=== PATIENT | male | born 1960 | race Caucasian/White ===

== ENCOUNTER 2019-06-07 12:51 | Emergency (ER) | payer OTHER, SELFPAY ==
[2019-06-07 12:53] VITALS: BP 114/70; PULSE 59; RESP 17; TEMP 37; O2SAT 99; BMI 32.2
--- NOTE | 2019-06-07 13:42 | CT_ITS ---
STUDY: CT BRAIN WITHOUT CONTRAST REASON FOR EXAM: Male, 59 years old. Headache after a fall RADIATION DOSAGE (If Supplied By Facility): CTDIvol = ( 60.81 ) mGy, DLP = ( 1089.89 ) mGycm TECHNIQUE: Transaxial CT imaging of the brain was performed without administration of intravenous contrast material. Individualized dose optimization techniques were used for this CT. COMPARISON: No relevant priors. FINDINGS: Normal soft tissue structures. Normal calvarium. Normal size ventricles and extra-axial spaces for the patient's age. Normal white matter tracts of the cerebral hemispheres. Normal basal ganglia and thalami. Normal brainstem. Normal cerebellum. There is no intracranial hemorrhage. There are no findings of an acute ischemic infarction. Normal visualized paranasal sinuses. CT/Brain/Head without Contrast IMPRESSION: Normal unenhanced CT scan of the brain. Electronically Signed: Yan Esquivel MD at 14:15 EDT , Service support ,
--- NOTE | 2019-06-07 13:42 | CT_ITS ---
STUDY: CT CERVICAL SPINE WITHOUT CONTRAST REASON FOR EXAM: Male, 59 years old. Headache after a fall RADIATION DOSAGE (If Supplied By Facility): CTDIvol = ( 28.89 ) mGy, DLP = ( 711.10 ) mGycm TECHNIQUE: High resolution transaxial imaging was performed without contrast material. Sagittal and coronal images were reconstructed. Individualized dose optimization techniques were used for this CT. COMPARISON: None FINDINGS: Normal craniovertebral junction. Normal anterior atlantoaxial articulation. Normal odontoid process. There is straightening of the normal cervical lordosis. Normal vertebral bodies and posterior osseous elements. Mild intervertebral disc space narrowing noted throughout the C-spine. No demonstrated fracture or suspicious osseous lesion. No central canal stenosis or significant foraminal narrowing. No upper rib fracture or pneumothorax CT/Spine Cervical without Contras IMPRESSION: Mild degenerative changes, as described above. Electronically Signed: Yan Esquivel MD at 14:28 EDT , Service support ,
--- NOTE | 2019-06-07 13:43 | ED.DCSUM_ITS ---
History of Present Illness Chief Complaint: Trauma Informant: Patient, Significant Other Onset: Today - about 1-2 hrs [employer] Mechanism/Context: Fall - off of a horse when it bucked Quality of Pain: Aching Current Severity: Mild Associated Symptoms: Parasthesias - in toes bilat, cowboy boots still on, Loss of consciousness, Amnesia Length of loss of consciousness: unk Narrative: Patient was bucked off of a horse, he lost consciousness, he then awoke and passed out again. At this time, the patient states that I am just now coming to, and I do not remember anything. states he is repeating questions. At this time he states he has a mild headache and his neck is a little sore on the right lateral aspect. He states he is having a little pain in his mid back around his left shoulder blade, and pain goes into his left shoulder. He denies any trouble breathing, chest discomfort, abdominal pain, nausea, visual disturbance, or other upper/lower extremity symptoms. - Past Medical History (1) Hypertension Status: Chronic (2) Depression Status: Chronic Past Medical History - Allergies and Home Meds Allergies/Adverse Reactions: Allergies No Known Allergies Allergy (Verified 06/07/19 12:52) Primary Care Physician: NOT,DEFINED [NON-STAFF] - Lives: Spouse/ Significant Other Review of Systems ROS: Unable to Obtain - limited except as indicated Eyes: Denies: Visual changes - bilaterally, Blurred Vision - bilaterally, Diplopia ENT: Denies: Bilateral ear pain, Rhinorrhea, Sore throat Cardiovascular: Denies: Chest pain, Palpitations Respiratory: Denies: Dyspnea, Cough, Dyspnea on exertion Gastrointestinal: Denies: Abdominal pain, Nausea, Vomiting Musculoskeletal: Reports: Neck pain, Back pain. Denies: Extremity Pain Skin: Denies: Rash, Abrasions, Wounds Neurological: Reports: Headache, Parasthesia - all toes. Denies: Weakness Physical Exam Vital Signs/Narrative: Vital Signs Temp Pulse Resp BP Pulse Ox 06/07/19 12:53 98.6 F 59 L 17 114/70 99 Inital Vital Signs reviewed: Yes General: Well nourished, Well developed Head: Normocephalic, Atraumatic. Negative for: Tenderness Eyes: Perrl, EOMI ENT: TM's clear, No hemotympanum or drainage, No trauma Neck: Nontender, Full ROM, Paraspinal Tenderness - Mild, lateral right neck. C- collar placed.. Negative for: Spinal Tenderness Cardiovascular: Regular rate, Regular rhythm, No murmurs. Negative for: Tachycardia Respiratory: No distress, CTA bilaterally, Chest nontender Abdomen: Soft, Nontender, Nondistended, Normal bowel sounds Back: Nontender. Negative for: Spinal Tenderness, Paraspinal Tenderness Skin: Normal color, No rash, No Trauma Neurological: Alert, Cranial nerves II-XII grossly intact, Normal Strength, Normal Sensation - After removing the patient's boots, his tingling is resolved and his sensation is normal., Disoriented - Knows what city and state he lives in, oriented to person, not to time/year/president. Negative for: Oriented x3 Psychological: Normal affect, Normal Mood - Glascow Coma Scale Eye Opening: Spontaneous Motor: Obeys Commands Verbal: Confused Coma Scale Total: 14 Diagnostic/Tx/Re-eval Clinical Impression(s) from Imaging Studies Brain CT 06/07/19 13:42 IMPRESSION: Normal unenhanced CT scan of the brain. Electronically Signed: Yan Esquivel MD at 14:15 EDT , Service support , Cervical Spine CT 06/07/19 13:42 IMPRESSION: Mild degenerative changes, as described above. Electronically Signed: Yan Esquivel MD at 14:28 EDT , Service support , Chest X-Ray 06/07/19 13:44 IMPRESSION: Normal x-ray examination of the chest. Electronically Signed: Yan Esquivel MD at 14:18 EDT , Service support , Laboratory Tests 06/07/19 06/07/19 06/07/19 Range/Units 17:15 16:32 16:32 WBC 12.7 H (4.4-11.0) K/mm3 RBC 4.57 L (4.6-6.2) M/mm3 Hgb 13.9 (13.0-16.5) g/dL Hct 40.8 (40-54) % MCV 89.3 (80-94) fL MCH 30.4 (27.0-32.0) pg MCHC 34.1 (32-36) g/dL RDW Std Deviation 41.9 (35.1-43.9) fl RDW Coeff of Raheem 12.8 (11.6-14.6) % Plt Count 274 (150-450) K/mm3 MPV 9.4 (6.2-12.0) fl Immature Gran % (Auto) 0.400 (0.0-0.9) % Neut % (Auto) 79.5 H (47-70) % Lymph % (Auto) 11.9 L (19-41) % [place] % (Auto) 7.7 (0-10) % Eos % (Auto) 0.2 (0-5) % Baso % (Auto) 0.3 (0-1) % Absolute Neuts (auto) 10.1 H (2.0-7.7) X10^3/uL Absolute Lymphs (auto) 1.51 (0.83-4.51) X10^3/uL Absolute Nucleated RBC 0.00 (0-5) 10^3/uL Nucleated RBC % 0 (0-5) % Differential Comment SCANNED Sodium 136 (136-145) mmol/L Potassium 4.0 (3.5-5.1) mmol/L Chloride 107 (98-107) mmol/L Carbon Dioxide 23.0 (21.0-32.0) mmol/L Anion Gap 6 (5-15) BUN 21 H (7-18) mg/dL Creatinine 1.13 (0.70-1.30) mg/dL Estim Creat Clear Calc 83.86 ml/min Est GFR (MDRD) Af Amer 86 (>60) mL/min Est GFR (MDRD) Non-Af 71 (>60) mL/min BUN/Creatinine Ratio 18.6 (10-20) RATIO Glucose 91 (74-106) mg/dL Calcium 9.1 (8.5-10.1) mg/dL Urine Color Yellow (Yellow) Urine Clarity Clear (Clear) Urine pH 6.0 (5.0 - 8.0) Ur Specific [place] 1.015 (1.002-1.030) Urine Protein 30 H (Negative) mg/dl Urine Glucose (UA) Normal (Normal) mg/dl Urine Ketones 50 H (Negative) mg/dl Urine Occult Blood Negative (Negative) /ul Urine Nitrite Negative (Negative) Urine Bilirubin Negative (Negative) mg/dL Urine Urobilinogen Normal (Normal) mg/dl Ur Leukocyte Esterase Negative (Negative) /ul Urine RBC 0-5 SEEN (0-5) /hpf Urine WBC 0-5 SEEN (0-5) /hpf Ur Squamous Epith Cells 0 SEEN (0-5) /hpf Urine Bacteria 0 SEEN (None Seen) /hpf Urine Mucus 1+ (<or=2+) /hpf - Medical Decision Making Scans are negative collar was removed and he is moving his head/neck well with minimal discomfort. He states his pain is mild. However he continues to repeat questions, and he cannot remember anything from more than 2 minutes ago. He was observed for about 4-5 hours and nothing is changed. is very concerned about taking at home. He does not remember any of the conversations they have had or that healthcare practitioners have had with him today in the emergency department. I think it is reasonable to observe him in the emergency department, he and family are comfortable with that plan. Patient was observed in total for about 5 hours since he arrived. His mentation cleared significantly, he was back to normal. He was able to tell me the year and the events of today although he did not remember any of the initial details. He stopped repeating questions, was no longer confused, had a GCS of 15. He is able to ambulate without difficulty. Family is comfortable taking him home at this time, we did discuss transfer to a trauma center, I discussed with the hospitalist here initially but they had stated he was inappropriate for admission due to the lack of neurology coverage for the next 2-1/2 days and lack of trauma services here. Given his significant improvement to baseline mental status, I do not think he needs admission any longer. He is home for the weekend, he is given a work note for Monday just in case, we discussed reasons to return to the ER and the very rare event of a delayed hemorrhage, he was given ibuprofen here which helped and advised to use Tylenol/ibuprofen/heat or ice at home, and he has a doctor's appointment on Monday of this coming week for a checkup, they will discuss further then. He also has a neurologist he can follow-up with if he is still having symptoms the following Monday. All questions answered at the bedside. ED Disposition - Plan for ED Patient: Disposition: Home or Assisted Living Diagnosis: Concussion with loss of consciousness <= 30 min, Cervical strain, acute, Fall from horse Instructions: CONCUSSION, No Wake Up, Neck Sprain/Strain Referrals: Doctor,Your [STAFF PHYSICIAN] - As Needed (on Monday this coming week)
--- NOTE | 2019-06-07 13:44 | RAD_ITS ---
STUDY: X-RAY CHEST REASON FOR EXAM: Male, 59 years old. Chest pain after a trauma TECHNIQUE: Single AP portable view of the chest. COMPARISON: None. FINDINGS: EKG leads overlie the chest The lungs are clear and expanded. There is no demonstrated pleural abnormality. Normal size heart. Normal mediastinum and shelly. Normal visualized pulmonary arteries. Normal visualized aortic arch and descending thoracic aorta. Normal visualized thoracic spine. Normal visualized ribs, clavicles, and shoulders. There is no demonstrated abnormality of the visualized soft tissue structures of the upper abdomen. RAD/Chest 1 View IMPRESSION: Normal x-ray examination of the chest. Electronically Signed: Yan Esquivel MD at 14:18 EDT , Service support ,
[2019-06-07 15:50] VITALS: BP 126/67; PULSE 71; RESP 12; O2SAT 97
[2019-06-07 16:51] LABS: Absolute Lymphocyte Count 1.51 X10^3/uL (0.83-4.51); Absolute Neutrophil Count 10.1 X10^3/uL (2.0-7.7); Basophil# 0.04 X10^3/uL; Basophil% 0.3 % (0-1); Eosinophil# 0.02 X10^3/uL; Eosinophils% 0.2 % (0-5); Hematocrit 40.8 % (40-54); Hemoglobin 13.9 g/dL (13.0-16.5); Lymphocyte # 1.51 X10^3/ul (4.0); Lymphocyte % 11.9 % (19-41); Mean Corp Hgb Conc 34.1 g/dL (32-36); Mean Corpuscular Hgb 30.4 pg (27.0-32.0); Mean Corpuscular Volume 89.3 fL (80-94); Mean Platelet Vol. 9.4 fl (6.2-12.0); Monocyte# 0.97 X10^3/uL; Monocyte% 7.7 % (0-10); NRBC Flagged by Analyzer 0 % (0-5); Neutrophil # 10.08 X10^3/uL (2.7-7.7); Neutrophil % 79.5 % (47-70); POSITIVE COUNT YES; Platelet Count 274 K/mm3 (150-450); RBC Distribution Width CV 12.8 % (11.6-14.6); RBC Distribution Width SD 41.9 fl (35.1-43.9); Red Blood Count 4.57 M/mm3 (4.6-6.2); White Blood Count 12.7 K/mm3 (4.4-11.0)
[2019-06-07 16:52] LABS: Differential Indicated SCAN CRITERIA MET
[2019-06-07 16:55] LABS: Anion Gap 6 (5-15); BUN 21 mg/dL (7-18); BUN/Creat Ratio 18.6 RATIO (10-20); Calcium,Total 9.1 mg/dL (8.5-10.1); Chloride 107 mmol/L (98-107); Creatinine, Serum 1.13 mg/dL (0.70-1.30); EST Glomerular Filtration Rate 71 mL/min (>60); Est Glom Filt Rate - Afr Amer 86 mL/min (>60); Estimated Creatinine Clearance 83.86 ml/min; Glucose 91 mg/dL (74-106); Sodium Level 136 mmol/L (136-145)
[2019-06-07 17:10] LABS: Differential Comment SCANNED
[2019-06-07 17:16] VITALS: PULSE 78; RESP 16
[2019-06-07] MEDS: Ibuprofen 600 MG Tablet PO (17:20)
[2019-06-07 17:25] LABS: Bacteria 0 SEEN /hpf (None Seen); Squamous Epithelial Cells - UA 0 SEEN /hpf (0-5)
[2019-06-07 17:30] LABS: Color, Urine Yellow (Yellow); Glucose, Dipstick Normal (Normal); Ketone-Dipstick 50 mg/dl (Negative); Leukocyte Esterase-Dipstick Negative /ul (Negative); Nitrite-Dipstick Negative (Negative); Occult Blood-Urine Negative /ul (Negative); Protein-Dipstick 30 mg/dl (Negative); Specific Gravity, Urine 1.015 (1.002-1.030); Urine Bilirubin Dipstick Negative (Negative); Urine Clarity Clear (Clear); Urine Urobilinogen Normal (Normal)
[2019-06-07 17:37] LABS: Mucous, Urine 1+ /hpf (<or=2+); Red Blood Cells-Urine 0-5 SEEN /hpf (0-5); White Blood Cells 0-5 SEEN /hpf (0-5)
[2019-06-07 18:12] VITALS: BP 131/70; PULSE 78; PULSE 79; RESP 17; O2SAT 97
== END 2019-06-07 18:36 | disposition home or self-care (01) ==
PROVIDERS: Emergency Provider Emergency Medicine; Family Provider Family Medicine; PCP Family Medicine
DX: S06.0X1A Concussion with loss of consciousness of 30 minutes or less, initial encounter (principal); S16.1XXA Strain of muscle, fascia and tendon at neck level, initial encounter; V80.010A Animal-rider injured by fall from or being thrown from horse in noncollision accident, initial encounter; Y93.52 Activity, horseback riding; Y92.9 Unspecified place or not applicable; I10 Essential (primary) hypertension; F32.9 Major depressive disorder, single episode, unspecified; Z79.899 Other long term (current) drug therapy
CPT/HCPCS: 70450; 71045; 72125; 80048; 81001; 85025; 99284; A4216

== ENCOUNTER 2025-08-08 09:20 | Emergency (ER) | payer OTHER, SELFPAY ==
[2025-08-08] VITALS (7 sets, daily range): BP systolic 105–146; BP diastolic 66–78; PULSE 53–60; RESP 12–16; TEMP 36.6–36.9; O2SAT 97–100; BMI 29.6
--- NOTE | 2025-08-08 11:08 | EX.ED.DYSGE1 ---
HPI History of Present Illness Chief Complaint: Syncope Informant: patient and spouse/S.O. Narrative Narrative: Patient is a 65-year-old male with history of depression, hypertension and syncopal episodes presenting after syncopal episode as well as some right groin pain. Patient states yesterday he was lifting a scooter and then afterwards noticed some pain in his left groin area. States it feels more like a pulling sensation. Has a history of partial colectomy (laparoscopic) and was told during the surgery he had a hernia. He was concerned he maybe has a hernia in his right groin. He went to urgent care yesterday where they said it was either hernia or strain. This morning while he was at breakfast he started to feel nauseous and was thinking about his groin discomfort. He then started to feel hot and then had a syncopal episode. His head laid down on the table and he did not injure himself. states he was out for approximately 20 seconds and then came back around. No report of any seizure activity. He is otherwise been in his normal state of health. They are going out of town on a trail riding trip this weekend and want a make sure that he is okay. He currently denies any nausea or vomiting. Denies any recent fever or chills. States besides his groin pain is otherwise been in his normal state of health. Denies any testicular pain, difficulty urinating or dysuria. Denies any associated vomiting or change in his bowel movements. No other complaints or concerns at this time [facility] Home Medications ?Medication ?Instructions ?Recorded ?Last Taken ?Type metoprolol succinate 50 mg 50 mg PO DAILY 06/07/19 06/07/19 History tablet,extended release 24 hr sertraline 50 mg tablet 50 mg PO DAILY 06/07/19 06/07/19 History Allergy/AdvReac Type Severity Reaction Status Date / Time No Known Allergies Allergy Verified 06/07/19 12:52 Social History Smoking Status: Never smoker ROS ROS ED Constitutional Constitutional ED: Reports sweats and other Details: Syncopal episode ; Denies chills or fever(s) Eyes Eyes: Denies change in vision Cardiovascular Cardiovascular: Denies chest pain Respiratory/Chest Respiratory/Chest: Denies cough or dyspnea Gastrointestinal Gastrointestinal: Reports nausea; Denies abdominal pain or vomiting Musculoskeletal Musculoskeletal: Reports other Details: right groin strain ; Denies arthralgias or myalgias Integumentary Denies Abrasions or rash Neurologic Neurologic: Denies headache(s), paresthesias or weakness Psychiatric Psychiatric: Denies anxiety Hematologic/Lymphatic Hematologic/Lymphatic: Denies easy bleeding or easy bruising EXAM Physical Exam Const Vital Signs: 08/08/25 09:21 08/08/25 09:21 08/08/25 11:21 Temperature 98.5 F Temperature Source Temporal Pulse Rate 53 L 54 L Respiratory Rate 12 16 Respiratory Effort Normal Non-Labored Blood Pressure 105/66 140/73 H Blood Pressure Mean 79 95 Pulse Ox 97 100 Oxygen Delivery Method Room Air Room Air 08/08/25 12:00 08/08/25 13:00 08/08/25 14:00 Temperature Temperature Source Pulse Rate 53 L 56 L 56 L Respiratory Rate 12 15 15 Respiratory Effort Blood Pressure 137/78 H 146/71 H 134/70 H Blood Pressure Mean 97 93 90 Pulse Ox 100 98 100 Oxygen Delivery Method Positive well nourished and well developed General Appearance ED: well developed and NAD HEENT Reports TM's clear and moist mucous membranes Negative for trauma Tympanic Membrane ED: Yes TM's clear Eyes PERRL and EOMs intact bilaterally Neck supple and no JVD Chest Wall inspection of chest normal and palpation of chest normal Resp normal respiratory effort and clear to auscultation bilaterally Cardio regular rate, regular rhythm and no murmurs GI normal to inspection, nondistended, normoactive bowel sounds and non-tender GI Narrative: Laparoscopic surgical incisions are well-healed. No ventral hernias appreciated. No right inguinal hernia appreciated on physical exam. No overlying skin changes especially in the right groin Extremity normal to inspection Extremity Narrative: Points to his right groin as area of tenderness however not highly reproducible. Normal range of motion of the hip. General Extremety ED: Negative for edema or tenderness General Extremity: Negative for edema Neuro oriented x3, CN's II-XII intact bilaterally and no sensory deficits noted Sensorium / Orientation: alert Motor Exam: strength 5/5 throughout; Negative for general weakness Psych mental status grossly normal Skin no rashes or lesions noted and no wounds MDM MDM MDM Narrative Medical decision making narrative: Patient valuated for syncopal episode. Does have a history of this. Did have a prodrome of feeling hot and sweaty. In addition has been having right groin pain. Differential includes not limited to symptomatic anemia, vasovagal episode, hypovolemia, FLO, electrolyte derangement, cardiac arrhythmia, inguinal hernia as well as groin strain. Patient is asymptomatic in the emergency room from a syncope standpoint. Overall quite well-appearing. Vital signs significant for mild bradycardia but he is on metoprolol at baseline. CBC is normal as well as BMP. Delta high since he troponin normal at 8 and 7 so lower suspicion for ACS or acute cardiac abnormality/ischemia causing his syncopal episode. EKG shows sinus bradycardia but no block or other arrhythmia. Chest x-ray viewed by myself as well as radiology does show degenerative changes as well as DISH in the thoracic spine but no acute cardiopulmonary process. I suspect his groin pain is more associated with a groin strain and not a hernia however I will give patient referral for general surgery for outpatient evaluation of this. Counseled on RICE therapy in the meantime for the pain. Patient will be discharged home to follow-up with his primary care doctor for the syncopal episode. He does have a history of syncope in the past and I suspect it was likely a vasovagal event. Patient is given return precautions. Discharged home in stable and improved condition. Lab Data Attestation: I reviewed the patient's lab results. Labs: Laboratory Results - last 24 hr 08/08/25 08/08/25 11:25 13:23 WBC 10.2 RBC 4.47 L Hgb 13.7 Hct 39.8 L MCV 89.0 MCH 30.6 MCHC 34.4 RDW Std Deviation 44.0 H RDW Coeff of Raheem 13.5 Plt Count 293 MPV 8.7 Immature Gran % (Auto) 0.500 Neut % (Auto) 73.7 H Lymph % (Auto) 15.8 L [place] % (Auto) 8.9 Eos % (Auto) 0.6 Baso % (Auto) 0.5 Absolute Neuts (auto) 7.6 Absolute Lymphs (auto) 1.62 Nucleated RBC % 0 Sodium 133 Potassium 4.6 Chloride 98 Carbon Dioxide 25.0 Anion Gap 10 BUN 21 H Creatinine 0.95 Estim Creat Clear Calc 102.70 Est GFR (MDRD) Non-Af 90 BUN/Creatinine Ratio 22.3 H Glucose 90 Calcium 9.4 Troponin T High Sens 8 Troponin T Hi Sens 2 Hr 7 Radiography Chest X-Ray - ED: 2 View, Read by ED Physician, Read by Radiologist and No Acute Disease Diagnostic Testing: Clinical Impression(s) from Imaging Studies Chest X-Ray 08/08/25 11:41 IMPRESSION: No evidence of pulmonary edema. Lungs appear clear. No pleural effusion or pneumothorax is noted. The cardiomediastinal silhouette is within the normal range. Mild thoracic spine degenerative changes are seen, along with DISH. No acute osseous change is evident. No evidence of acute cardiopulmonary disease. Reading Location: [address] Rhythm Strip Rhythm Strip: Sinus Rhythm Rate: 50 Ectopy: None EKG Initial EKG: Attestation: I personally reviewed and interpreted this EKG as follows: Interpretation: Sinus Bradycardia Comments: Sinus bradycardia rate of 50 bpm Normal axis Normal intervals No ST segment Prior EKG tracings: not available for review Prior: No Prior Discharge Plan Triage Chief Complaint: Syncope ED Provider: Keri Rocha Dx/Rx/DC Orders Clinical Impression: Syncope, Bradycardia, Strain of right groin Instructions: ED Fainting, Vagal Reaction Prescriptions: No Action metoprolol succinate 50 MG tablet extended release 24 hr 50 mg PO DAILY sertraline 50 MG tablet 50 mg PO DAILY Primary Care Provider: William Lin Referrals: Amira Arce MD [Med Staff - Active Staff, General Surgery] William Lin PA-C [Primary Care Provider, Medical] Activity Restrictions/Additional Instructions: I suspect you have a strain in your groin that is causing your pain. I also suspect you had a vasovagal episode. Make sure drinking plenty of fluids. Alternate ibuprofen and Tylenol for your groin pain. Ice the area. Your x-ray did show some significant degenerative changes of your thoracic spine called DISH. Please follow-up with your family care doctor for this. My return from your trip please follow-up with your family doctor. If you have further syncopal episodes in the next few days please return the emergency room. Print Language: Khmer Disposition Disposition: Home, Self Care Discharge Date/Time: 08/08/25 14:49
--- NOTE | 2025-08-08 11:10 | EKG12_ITS ---
Test Reason : SYNCOPE Blood Pressure : */* mmHG Vent. Rate : 50 BPM Atrial Rate : 50 BPM P-R Int : 158 ms QRS Dur : 90 ms QT Int : 416 ms P-R-T Axes : 57 1 37 degrees QTcB Int : 379 ms Sinus bradycardia Otherwise normal ECG Confirmed by DIANE YOUNGER ([id number]), editor producer JOSE R OREILLY ([id number]) on 08/11/2025 9:06:52 AM Referred By: Confirmed By: DIANE YOUNGER
[2025-08-08 11:39] LABS: Hematocrit 39.8 % (40-54); Hemoglobin 13.7 g/dL (13.0-16.5); Immature Granulocytes Count 0.050 X10^3/uL (0.0-0.0); Mean Corp Hgb Conc 34.4 g/dL (32-36); Mean Corpuscular Volume 89.0 fL (80-94); Mean Platelet Vol. 8.7 fl (6.2-12.0); NRBC Flagged by Analyzer 0 % (0-5); Platelet Count 293 K/mm3 (150-450); RBC Distribution Width CV 13.5 % (11.6-14.6); RBC Distribution Width SD 44.0 fl (35.1-43.9); Red Blood Count 4.47 M/mm3 (4.6-6.2); White Blood Count 10.2 K/mm3 (4.4-11.0)
--- NOTE | 2025-08-08 11:41 | RAD_ITS ---
PROCEDURE: CHEST PA AND LATERAL 08/08/2025 REASON FOR EXAM: SYNCOPE TECHNIQUE: Procedure Code: RADCXR Modality: DX Procedure: CHEST PA AND LATERAL COMPARISON: AP chest of 06/07/2019. RAD/Chest PA and Lateral IMPRESSION: No evidence of pulmonary edema. Lungs appear clear. No pleural effusion or pneumothorax is noted. The cardiomediastinal silhouette is within the normal range. Mild thoracic spine degenerative changes are seen, along with DISH. No acute osseous change is evident. No evidence of acute cardiopulmonary disease. Reading Location: [id number]
[2025-08-08 12:37] LABS: Troponin T High Sensitivity 8 ng/L (<=22)
[2025-08-08 12:40] LABS: Anion Gap 10 (5-15); BUN 21 mg/dL (4-19); BUN/Creat Ratio 22.3 RATIO (10-20); Calcium,Total 9.4 mg/dL (7.6-11.0); Carbon Dioxide 25.0 mmol/L (21.0-32.0); Chloride 98 mmol/L (98-108); Estimated Creatinine Clearance 102.70 ml/min (50-250); Glucose 90 mg/dL (70-99); Potassium 4.6 mmol/L (3.3-5.1)
[2025-08-08 14:09] LABS: Troponin T High Sens 2 HR 7 ng/L (<=22)
== END 2025-08-08 14:49 | disposition home or self-care (01) ==
PROVIDERS: Emergency Provider Emergency Medicine; PCP Physician Assistant; Visit Provider Emergency Medicine
DX: R55 Syncope and collapse (principal); R00.1 Bradycardia, unspecified; S39.011A Strain of muscle, fascia and tendon of abdomen, initial encounter; X58.XXXA Exposure to other specified factors, initial encounter
CPT/HCPCS: 71046; 80048; 84484; 85025; 93005; 99285; A4216